=== PATIENT | female | born 1995 | race Caucasian/White ===

== ENCOUNTER 2021-11-10 22:54 | Emergency (ER) | payer OTHER ==
[~2021-11-10] VITALS: Ht 167.6 cm; Wt 92.1 kg
--- NOTE | 2021-11-10 23:02 | NUR ---
PT OFFLOADED TO [facility]
[2021-11-10 23:03] VITALS: BP 126/71
--- NOTE | 2021-11-10 23:10 | NUR ---
SEE COMPLETE ASSESSMENT
[2021-11-11] MEDS ORDERED: KETOROLAC 60 MG/2 ML VIAL IM ONE (02:40)
[2021-11-11] MEDS ORDERED: IBUP-2213 PO (02:47)
[2021-11-11] MEDS ORDERED: ACET-8386 PO (02:47)
[2021-11-11] MEDS ORDERED: BACITRACIN OINT 500 UNITS/GM PKT TP ONE (02:55)
--- NOTE | 2021-11-11 03:20 | NUR ---
Patient discharged with v/s stable. Written and verbal after care instructions given and explained. Patient alert, oriented and verbalized understanding of instructions. Ambulatory with steady gait. All questions addressed prior to discharge. ID band removed. Patient advised to follow up with PMD. Rx of NORCO AND MOTRIN given. Patient educated on indication of medication including possible reaction and side effects. Opportunity to ask questions provided and answered.
== END 2021-11-11 03:20 | disposition home or self-care (01) ==
LOC: MED 22:54
DX: S93.402A Sprain of unspecified ligament of left ankle, initial encounter (principal); M54.6 Pain in thoracic spine; F12.90 Cannabis use, unspecified, uncomplicated; V09.9XXA Pedestrian injured in unspecified transport accident, initial encounter; Y93.89 Activity, other specified; Y92.89 Other specified places as the place of occurrence of the external cause; Y99.8 Other external cause status
CPT/HCPCS: 72072; 73610; 90471; 90715; 96372; 99284; J1885